=== PATIENT | male | born 1975 | race Caucasian/White ===

== ENCOUNTER 2025-04-20 09:43 | Emergency (ER) | payer OTHER, SELFPAY ==
[2025-04-20 09:45] VITALS: BP 137/106; PULSE 63; RESP 18; TEMP 35.7; O2SAT 98; BMI 35.2
--- NOTE | 2025-04-20 10:29 | RAD_ITS ---
PROCEDURE: CHEST 1 VIEW (PORTABLE) 04/20/2025 REASON FOR EXAM: CHEST PAIN TECHNIQUE: Frontal view of the chest. COMPARISON: None FINDINGS: Hardware: EKG electrodes are seen. Heart: Cardiomegaly. Lungs: The lungs are clear. Bones: Degenerative changes are identified within the thoracic spine. Other: None RAD/Chest 1 View (Portable) IMPRESSION: Cardiomegaly. The lungs are clear. Reading Location: [facility]
--- NOTE | 2025-04-20 10:29 | EKG12_ITS ---
Test Reason : CP Blood Pressure : */* mmHG Vent. Rate : 51 BPM Atrial Rate : 51 BPM P-R Int : 164 ms QRS Dur : 110 ms QT Int : 434 ms P-R-T Axes : 55 -18 18 degrees QTcB Int : 400 ms Sinus bradycardia with sinus arrhythmia RSR' or QR pattern in V1 suggests right ventricular conduction delay Minimal voltage criteria for LVH, may be normal variant ( R in aVL ) Borderline ECG Confirmed by ROBBIE STANLEY, IVAN ([id number]), commercial production editor LIZET CM ([id number]) on 04/24/2025 8:20:26 AM Referred By: YULIANA Confirmed By: IVAN AVALOS MD
--- NOTE | 2025-04-20 10:30 | ED.VIS.CHEST ---
HPI History of Present Illness Chief Complaint: Chest Pain Narrative Narrative: 50-year-old male presents with his because of right shoulder and right pectoral pain that woke him from sleep at around 3:00 in the morning. He relates history that over the last few days he was crawling around, and was in awkward positions. Started having left trapezial pain. He was using a therapeutic cane on the area. He also endorses intermittent nausea over the last week or so. He has past medical history of hypertension. His states he takes medication for his diastolic blood pressure. He was concerned because this morning he started having pain in his right trapezius and into his right shoulder. It migrated downward into his right pectoral area. He denies any vomiting, no shortness of breath, no other exacerbating or alleviating factors. He states he spoke with his primary care provider's office and based on the symptoms that he was having, they suggested he present to the emergency department. Additionally, he states that he was looking things up on the Internet, and was concerned about cardiac problems as well because of his nausea. [facility] Medical History Hypertension Allergy/AdvReac Type Severity Reaction Status Date / Time No Known Allergies Allergy Verified 04/20/25 09:47 Social History Smoking Status: Never smoker ROS ROS ED ROS Narrative Review of systems positive for right shoulder pain and right pectoral pain. Intermittent nausea for the last week. No shortness of breath or diaphoresis, no vomiting. No exacerbating or alleviating factors. EXAM Physical Exam Narrative Exam Narrative: Afebrile. Vital signs noted. Nontoxic-appearing. Cardiovascular examination regular rate and rhythm. Lungs clear to auscultation bilaterally. Abdomen is soft and nontender with normal active bowel sounds. No guarding or rebound. Neurological examination nonfocal, nonlateralizing. No tenderness of chest, no crepitance. No trapezial tenderness. Const Vital Signs: 04/20/25 09:45 04/20/25 10:24 04/20/25 10:29 Temperature 96.3 F L Temperature Source Temporal Pulse Rate 63 Respiratory Rate 18 Respiratory Effort Normal Non-Labored Respiratory Pattern Normal Blood Pressure 137/106 H Blood Pressure Mean 116 Pulse Ox 98 Oxygen Delivery Method Room Air Room Air 07/31/25 10:45 04/20/25 11:00 04/20/25 12:00 Temperature Temperature Source Pulse Rate 51 L 48 L 45 L Respiratory Rate 12 Respiratory Effort Respiratory Pattern Blood Pressure 163/95 H 127/70 H 142/100 H Blood Pressure Mean 117 89 114 Pulse Ox 98 100 100 Oxygen Delivery Method Room Air 04/20/25 13:00 Temperature Temperature Source Pulse Rate 47 L Respiratory Rate Respiratory Effort Respiratory Pattern Blood Pressure 164/100 H Blood Pressure Mean 121 Pulse Ox 100 Oxygen Delivery Method MDM MDM MDM Narrative Medical decision making narrative: The differential diagnosis includes but not limited to ACS versus cervical radiculopathy. I have low suspicion for pulmonary embolism and he is PERC negative. Pulse ox 98% on room air without evidence of hypoxia. He could have had more musculoskeletal pain as well. Chest pain workup was pursued. He is currently pain-free. EKG obtained and interpreted by myself independently as sinus bradycardia with sinus arrhythmia at 51 bpm without other ectopy or acute ST changes. No STEMI. On my individual interpretation of his chest x-ray, there is no acute process, no pneumonia, no pneumothorax. I reviewed the radiology report which confirms my independent interpretation. I reviewed his laboratory work and he has a normal white count of 6.0 with hemoglobin 14.5, hematocrit 40.6, platelet count normal at 205. BMP grossly unremarkable with glucose 96. Initial high-sensitivity troponin is 15 with a repeat at 2 hours being 14. This is an acceptable delta troponin and I feel that he has been ruled out for ACS with biomarkers. At this point in time, he might have had more musculoskeletal pain. I do not feel he requires observation or admission at this time. He will follow-up with his primary care provider. Return instructions reviewed. Disposition is discharged home in stable condition. History & Record Review Discussion w/independent historian: Patient Additional record(s) reviewed:: No prior records (No prior ED visits) Lab Data Attestation: I reviewed the patient's lab results. Labs: Laboratory Results - last 24 hr 04/20/25 04/20/25 10:40 12:35 WBC 6.0 RBC 4.72 Hgb 14.5 Hct 40.6 MCV 86.0 MCH 30.7 MCHC 35.7 RDW Std Deviation 40.5 RDW Coeff of Buzz 13.1 Plt Count 205 MPV 10.3 Immature Gran % (Auto) 0.300 Neut % (Auto) 63.3 Lymph % (Auto) 24.7 [place] % (Auto) 8.9 Eos % (Auto) 2.3 Baso % (Auto) 0.5 Absolute Neuts (auto) 3.8 Absolute Lymphs (auto) 1.47 Nucleated RBC % 0 Sodium 138 Potassium 4.2 Chloride 104 Carbon Dioxide 23.8 Anion Gap 10 BUN 19 Creatinine 1.04 Estim Creat Clear Calc 106.87 Est GFR (MDRD) Non-Af 86 BUN/Creatinine Ratio 18.7 Glucose 96 Calcium 9.2 Troponin T High Sens 15 Troponin T Hi Sens 2 Hr 14 Radiography Diagnostic Testing: Clinical Impression(s) from Imaging Studies Chest X-Ray 04/20/25 10:29 IMPRESSION: Cardiomegaly. The lungs are clear. Reading Location: [facility] Discharge Plan Triage Chief Complaint: Chest Pain ED Provider: Henry Lora Dx/Rx/DC Orders Clinical Impression: Chest pain, Nausea, Pain of right shoulder region Instructions: ED Chest Pain, Uncertain Cause, ED Pain, Acute, Uncertain Cause Primary Care Provider: Tao Birmingham Referrals: Tao Birmingham MD [Primary Care Provider] - 3-5 Days Activity Restrictions/Additional Instructions: Return with increased chest pain, shortness of breath, fever, new or worsening symptoms. Print Language: Georgian Disposition Disposition: Home, Self Care
[2025-04-20 10:45] VITALS: BP 163/95; PULSE 51; RESP 12; O2SAT 98
[2025-04-20 10:58] LABS: Hematocrit 40.6 % (40-54); Hemoglobin 14.5 g/dL (13.0-16.5); Immature Granulocytes Count 0.020 X10^3/uL (0.0-0.0); Mean Corp Hgb Conc 35.7 g/dL (32-36); Mean Corpuscular Volume 86.0 fL (80-94); Mean Platelet Vol. 10.3 fl (6.2-12.0); NRBC Flagged by Analyzer 0 % (0-5); Platelet Count 205 K/mm3 (150-450); RBC Distribution Width CV 13.1 % (11.6-14.6); RBC Distribution Width SD 40.5 fl (35.1-43.9); Red Blood Count 4.72 M/mm3 (4.6-6.2); White Blood Count 6.0 K/mm3 (4.4-11.0)
[2025-04-20 11:00] VITALS: BP 127/70; PULSE 48; O2SAT 100
[2025-04-20 11:10] LABS: Anion Gap 10 (5-15); BUN 19 mg/dL (4-19); BUN/Creat Ratio 18.7 RATIO (10-20); Calcium,Total 9.2 mg/dL (7.6-11.0); Carbon Dioxide 23.8 mmol/L (21.0-32.0); Chloride 104 mmol/L (98-108); Estimated Creatinine Clearance 106.87 ml/min (50-250); Glucose 96 mg/dL (70-99); Potassium 4.2 mmol/L (3.3-5.1); Troponin T High Sensitivity 15 ng/L (<=22)
[2025-04-20 12:00] VITALS: BP 142/100; PULSE 45; O2SAT 100
[2025-04-20 13:00] VITALS: BP 164/100; PULSE 47; O2SAT 100
[2025-04-20 13:30] LABS: Troponin T High Sens 2 HR 14 ng/L (<=22)
[2025-04-20 13:49] VITALS: BP 158/70; PULSE 47; RESP 16; TEMP 37.1; O2SAT 100
== END 2025-04-20 14:00 | disposition home or self-care (01) ==
PROVIDERS: Emergency Provider Emergency Medicine; PCP Family Medicine; Visit Provider Emergency Medicine
DX: R07.9 Chest pain, unspecified (principal); M25.511 Pain in right shoulder; I10 Essential (primary) hypertension; R11.0 Nausea; Z79.899 Other long term (current) drug therapy; X58.XXXA Exposure to other specified factors, initial encounter
CPT/HCPCS: 71045; 80048; 84484; 85025; 93005; 99285; A4216